=== PATIENT | female | born 1980 | race American Indian/Alaskan Native ===

== ENCOUNTER 2018-10-16 18:57 | Inpatient (IN) | payer MEDICAID ==
[2018-10-16 18:58] VITALS: BMI 33.5
--- NOTE | 2018-10-16 19:25 | C.PDOC ---
History Of Present Illness Patient is a 37yo F with PMH IDDM, HTN, hypothyroidism here today for chest pain starting this morning. She says this is what her last episode of DKA felt like. She has been taking her insulin, however her eating today has been erratic. The generalized anterior chest pain does not radiate and started this AM upon waking and worsened until she became short of breath which encouraged her to come to the hospital. She states that she's been urinating almost 7 times a day for the last two days. She has felt more numbness and tingling in her hands and feet than her usual neuropathy. Admits fever, chills, dehydration, nausea. Denies abdominal pain, vomiting, constipation, trauma. <Caty Shah - Last Filed: 10/16/18 21:53> History Per: Patient Onset/Duration Of Symptoms: Hrs Current Symptoms Are (Timing): Worse Quality: Aching, Tightness Associated Symptoms: Nausea. denies: Diaphoresis, Syncope <Caty Shah - Last Filed: 10/16/18 21:53> <Emre Jolly - Last Filed: 10/16/18 22:05> Time Seen by Provider: 10/16/18 19:24 Chief Complaint (Nursing): Chest Pain Past Medical History Reviewed: Historical Data, Nursing Documentation, Vital Signs Vital Signs: Last Vital Signs Temp 98.4 F 10/16/18 19:10 Pulse 108 H 10/16/18 19:20 Resp 20 10/16/18 19:10 BP 144/54 L 10/16/18 19:20 Pulse Ox 99 10/16/18 19:26 <Caty Shah - Last Filed: 10/16/18 21:53> Reviewed: Historical Data, Nursing Documentation, Vital Signs Vital Signs: Last Vital Signs Temp 98.4 F 10/16/18 19:10 Pulse 102 H 10/16/18 19:10 Resp 20 10/16/18 19:10 BP 134/80 10/16/18 19:10 Pulse Ox - Medical History PMH: Asthma, Diabetes, HTN, Hypothyroidism Denies: Depression Family History: States: No Known Family Hx - Social History Hx Alcohol Use: Yes Hx Substance Use: No - Immunization History Hx Tetanus Toxoid Vaccination: Yes Hx Influenza Vaccination: Yes Hx Pneumococcal Vaccination: Yes <Emre Jolly - Last Filed: 10/16/18 22:05> Review Of Systems Constitutional: Positive for: Fever, Chills, Weakness. Negative for: Sweats Cardiovascular: Positive for: Chest Pain. Negative for: Palpitations, Edema Respiratory: Positive for: Shortness of Breath. Negative for: Cough, Hemoptysis, Wheezing Gastrointestinal: Positive for: Nausea. Negative for: Vomiting, Abdominal Pain, Diarrhea, Constipation, Hematochezia Genitourinary: Positive for: Frequency. Negative for: Dysuria, Incontinence Skin: Negative for: Rash, Jaundice Neurological: Positive for: Weakness, Numbness. Negative for: Confusion, Seizures Psych: Negative for: Anxiety, Depression <Caty Shah - Last Filed: 10/16/18 21:53> Physical Exam - Physical Exam Appears: Toxic, No Acute Distress Skin: Warm, Dry Head: Atraumatic, Normacephalic Eye(s): bilateral: PERRL, EOMI, Conjunctiva Pale Oral Mucosa: Dry Neck: Normal ROM, Trachea Midline Chest: Symmetrical, No Deformity, No Tenderness, No Ecchymosis Cardiovascular: Rhythm Regular (tachycardia), No Murmur Respiratory: Normal Breath Sounds, No Accessory Muscle Use, No Rales, No Rhonchi, No Stridor Gastrointestinal/Abdominal: Bowel Sounds, Soft, No Tenderness, No Distention, No Guarding Extremity: Bilateral: No Pedal Edema Pulses: Left Radial: Normal, Right Radial: Normal, Left Dorsalis Pedis: Normal, Right Dorsalis Pedis: Normal DTR: Knee (R): 2+, Knee (L): 2+ Neurological/Psych: Oriented x3, Normal Speech, Normal Cognition, Normal Motor, No Normal Sensation (decreased sensation in hands and legs distal to knee bilaterally) <Caty Shah - Last Filed: 10/16/18 21:53> - Physical Exam Appears: Toxic, In Acute Distress Skin: Warm, Dry, Diaphoretic Head: Other (r hydrocephalus shunt) Eye(s): bilateral: Normal Inspection Oral Mucosa: Dry Neck: Supple Back: No CVA Tenderness Extremity: No Tenderness Extremity: Bilateral: Atraumatic, No Pedal Edema, Normal Color And Temperature Gait: Unable To Assess <Emre Jolly - Last Filed: 10/16/18 22:05> ED Course And Treatment - Laboratory Results Result Diagrams: 10/16/18 19:37 10/16/18 20:40 <Caty Shah - Last Filed: 10/16/18 21:53> - Laboratory Results Result Diagrams: 10/16/18 19:37 10/16/18 20:40 ECG: Interpreted By Me, Viewed By Me ECG Rhythm: Sinus Rhythm (104), Nonspecific Changes O2 Sat by Pulse Oximetry: 99 Pulse Ox Interpretation: Normal Progress Note: spoke with dr pritchard - icu- will come and see the pt int the ed. I've attempted a left ej, ut the vein collapsed <Emre Jolly - Last Filed: 10/16/18 22:05> Critical Care Time - Critical Care Note Total Time (in mins): 30 Documented critical care: time excludes all time spent performing seperately billable procedures. <Emre Jolly - Last Filed: 10/16/18 22:05> Medical Decision Making Medical Decision Making: - EKG - VBG shock - labs - Hgb A1c - b-hydroxy - lipase - Mg, P - troponin - ASA 325mg PO - NS 3L bolus - UA, upreg - Zofran PO <Caty Shah - Last Filed: 10/16/18 21:53> Disposition <Caty Shah - Last Filed: 10/16/18 21:53> Discussed With : Carlos Marroquin Comment: accepted the pt on her service and took over the care at 10:02. PM Doctor Will See Patient In The: ED Counseled Patient/Family Regarding: Studies Performed, Diagnosis - Disposition Disposition Time: 19:25 - POA Present On Arrival: Poor Glycemic Control <Emre Jolly - Last Filed: 10/16/18 22:05> - Disposition Disposition: HOSPITALIZED Condition: CRITICAL Forms: [employer] ([place]) - Clinical Impression Clinical Impression: DKA (diabetic ketoacidosis) Decision To Admit <Caty Shah - Last Filed: 10/16/18 21:53> - Pt Status Changed To: Hospital Disposition Of: Inpatient - Admit Certification Admit to Inpatient:: After my assessment, the patient will require hospita lization for at least two midnights. This is because of the severity of symptoms shown, intensity of services needed, and/or the medical risk in this patient being treated as an outpatient. - InPatient: Physician Admission Certification: I certify that this patient requires 2 or more midnights of care for the following reason:: After my assessment, the patie nt will require hospitalization for at least two midnights. This is because of the severity of symptoms shown, intensity of services needed, and/or the medical risk in this patient being treated as an outpatient. - . Bed Request Type: ICU <Emre Jolly - Last Filed: 10/16/18 22:05> - . Patient Diagnosis: DKA (diabetic ketoacidosis)
[2018-10-16] MEDS ORDERED: Aspirin 325 mg EC Tablets PO STA (19:27)
[2018-10-16] MEDS ORDERED: Sodium Chloride 0.9% 1,000 ML IV ONE ×2 (19:38→22:00)
[2018-10-16 19:43] LABS: BASO % 0.1 % (0.0-2.0); HEMOGLOBIN 14.5 g/dL (11.0-16.0); LYMPH # 0.6 K/uL (1.0-4.3); LYMPH % 3.7 % (20.0-40.0); MEAN CELL VOLUME 91.6 fL (81.0-99.0); MEAN CORPUSCULAR HEMOGLOBIN 29.3 pg (27.0-31.0); MEAN PLATELET VOLUME 8.3 fL (7.2-11.7); MONO # 0.6 K/uL (0.0-0.8); MONO % 4.1 % (0.0-10.0); NEUT # 14.2 K/uL (1.8-7.0); NEUT % 92.1 % (50.0-75.0); PLATELET COUNT 324 K/uL (130-400); RBC 4.96 Mil/uL (3.80-5.20); RED CELL DISTRIBUTION WIDTH 15.4 % (11.5-14.5); WHITE BLOOD COUNT 15.4 K/uL (4.8-10.8)
[2018-10-16 19:56] LABS: INR 1.1; PROTHROMBIN TIME 11.5 SECONDS (9.7-12.2)
[2018-10-16 20:17] LABS: HCG,QUALITATIVE URINE NEGATIVE (NEGATIVE)
[2018-10-16 20:20] LABS: SQUAMOUS EPITHIAL 1 /hpf (0-5); URINE BACTERIA RARE (<OCC); URINE BILIRUBIN NEGATIVE (NEGATIVE); URINE BLOOD 1+ (NEGATIVE); URINE CLARITY Clear (Clear); URINE COLOR Straw (YELLOW); URINE GLUCOSE (UA) 3+ mg/dL (Normal); URINE LEUKOCYTE ESTERASE NEG Leu/uL (Negative); URINE PROTEIN NEGATIVE (NEGATIVE); URINE UROBILINOGEN NORMAL mg/dL (0.2-1.0)
[2018-10-16 20:43] LABS: VENOUS BLOOD GAS PCO2 33 mmHg (40-60); VENOUS BLOOD GAS PO2 30 mm/Hg (30-55); VENOUS BLOOD PH < 6.80 (7.32-7.43)
[2018-10-16] MEDS ORDERED: Sodium Chloride 0.9% 2,000 ML IV ONE (20:45)
[2018-10-16] MEDS ORDERED: Sodium Chloride 0.9% 2,000 ML ONE (20:56)
[2018-10-16 21:17] LABS: ALB/GLOB RATIO 1.4 (1.0-2.1); ALBUMIN 5.5 g/dL (3.5-5.0); ALT/SGPT 13 U/L (9-52); AST/SGOT 53 U/L (14-36); BLOOD UREA NITROGEN 20 mg/dL (7-17); CALCIUM 10.1 mg/dl (8.6-10.4); GFR NON-AFRICAN AMERICAN > 60; LIPASE 28 U/L (23-300)
[2018-10-16] MEDS ORDERED: Insulin Human Regular 100 UNIT in Sodium Chloride 0.9% 99 ML IV SCH ×3 (21:30→22:56)
[2018-10-16] MEDS ORDERED: Sodium Bicarbonate (8.4%) 50 Meq Syringe IVP ONE (21:45)
[2018-10-16] MEDS ORDERED: (Novolin R) Insulin Human Regular 100 units/ml vial IVP ONE (21:48)
[2018-10-16] MEDS ORDERED: Sodium Bicarbonate (8.4%) 50 mEq Vial ONE (21:59)
[2018-10-16] MEDS ORDERED: (Novolin R) Insulin Human Regular 100 units/ml vial ONE (22:05)
[2018-10-16 22:13] LABS: ABG ALLEN TEST POS; ARTERIAL BLOOD GAS HCO3 2.9 mmol/L (21-28); ARTERIAL BLOOD GAS O2 SAT 99.3 % (95-98); ARTERIAL BLOOD GAS PCO2 10 mm/Hg (35-45); ARTERIAL BLOOD GAS PH 6.95 (7.35-7.45); ARTERIAL BLOOD GAS PO2 138 mm/Hg (80-100); ARTERIAL BLOOD GAS TCO2 2.5 mmol/L (22-28)
[2018-10-16 22:24] LABS: BANDS 5 % (0-2); LYMPHOCYTE 5 % (20-40); MONOCYTE 3 % (0-10); NEUTROPHIL 87 % (50-75); TOTAL CELLS COUNTED 100
[2018-10-16 22:25] LABS: PLATELET ESTIMATE NORMAL (NORMAL)
--- NOTE | 2018-10-16 23:19 | CP.PCM.CON ---
History of Present Illness - History of Present Illness History of Present Illness: Chief commend: Not feeling well HPI: 37-year-old female with a known history of diabetes and taking medications insulin short-acting 3 times a day was doing well until yesterday. Last night she started having some heaves not feeling well. This morning she was okay but later she started having increasing heaves, associate with the nausea symptoms. She was not feeling well, she started having increasing body pain, and also associated with the nausea sensation. She denies any fever, denies any chills, denies any vomiting. But increasing urinary output noted. Increasing testing as noted. She was with the friends at that time, as the condition started getting worse, she called the ambulance and brought to the emergency room. Currently patient is having increasing body pain, joint pain. Not feeling well. Generalized weakness noted. But patient is answering simple questions Past medical history Hypertension, diabetes, history of hydrocephalus History of PHARMACY TECHNICIAN shunt Allergies no known drug allergy Patient denies any smoking. Denies any alcohol. Denies any drug abuse Family history significant for high blood pressure and diabetes Patient is lives by herself had a family lives distant On examination: Patient is having severe distress at this time. Acidotic breathing noted. Dry mucosa noted. Increasing urination noted today Alert and awake responding. Chest bilateral good air entry Heart sounds are regular Abdomen soft. Nontender. No edema I reviewed the labs Severe acidosis Severe anion gap is metabolic acidosis noted. DKA likely. Assessment and recommendation: 37-year-old female with history of diabetes and a history of hydrocephalus came to the emergency room with severe DKA. Severe metabolic acidosis with anion gap. Patient will need increasing IV fluids. IV fluid resuscitation. Insulin drip. Monitor the electrolytes very closely. Hyperkalemia noted also been Likely secondary to DKA as the acidosis gets corrected potassium level will also improve the GI prophylaxis. DVT prophylaxis. It is unclear whether there is any secondary component such as infectious process at this time. Patient does not have any fever. Urine analysis is clear. Lipase level is normal. Still will closely monitor. If there is evidence of infection we will start the patient on antibiotic. Past Patient History - Infectious Disease Hx of Infectious Diseases: None - Tetanus Immunizations Tetanus Immunization: Unknown - Past Social History Smoking Status: Never Smoked - CARDIAC Hx Hypertension: Yes - PULMONARY Hx Asthma: Yes - NEUROLOGICAL Other/Comment: neuropathy - HEENT Hx Cataracts: Yes Other/Comment: retinopathy - ENDOCRINE/METABOLIC Hx Hypothyroidism: Yes - PSYCHIATRIC Hx Depression: No Hx Substance Use: No - SURGICAL HISTORY Hx Cataract Extraction: Yes - ANESTHESIA Hx Anesthesia: Yes Meds Allergies/Adverse Reactions: Allergies Allergy/AdvReac Type Severity Reaction Status Date / Time No Known Allergies Allergy Verified 10/16/18 19:15 - Medications Medications: Current Medications Albuterol/Ipratropium (Duoneb 3 Mg/0.5 Mg (3 Ml) Ud) 3 ml INH RQ6 [facility] Heparin Sodium (Porcine) (Heparin) 5,000 units SC Q8 [facility] Sodium Chloride (Sodium Chloride 0.9%) 1,000 mls @ 500 mls/hr IV .Q2H [facility] Insulin Human Regular 100 unit (/ Sodium Chloride) 100 mls @ 5 mls/hr IV .Q20H [facility]; Protocol Pantoprazole Sodium (Protonix Inj) 40 mg IVP Q12H [facility] Results - Vital Signs Recent Vital Signs: Last Vital Signs Temp 98.4 F 10/16/18 19:10 Pulse 129 H 10/16/18 22:32 Resp 28 H 10/16/18 22:32 BP 145/55 L 10/16/18 22:32 Pulse Ox 100 10/16/18 22:32 - Labs Result Diagrams: 10/16/18 19:37 10/16/18 20:40 Labs: Laboratory Results - last 24 hr 10/16/18 10/16/18 10/16/18 19:37 19:37 19:37 WBC 15.4 H RBC 4.96 Hgb 14.5 Hct 45.4 MCV 91.6 MCH 29.3 MCHC 32.0 L RDW 15.4 H Plt Count 324 MPV 8.3 Neut % (Auto) 92.1 H Lymph % (Auto) 3.7 L Larue % (Auto) 4.1 Eos % (Auto) 0.0 Baso % (Auto) 0.1 Neut # (Auto) 14.2 H Lymph # (Auto) 0.6 L [place] # (Auto) 0.6 Eos # (Auto) 0.0 Baso # (Auto) 0.0 Neutrophils % (Manual) 87 H Band Neutrophils % 5 H Lymphocytes % (Manual) 5 L Monocytes % (Manual) 3 Platelet Estimate Normal PT 11.5 INR 1.1 APTT 31.0 Puncture Site pCO2 pO2 HCO3 ABG pH ABG Total CO2 ABG O2 Saturation ABG Base Excess Mateusz Test ABG Potassium VBG pH VBG pCO2 VBG O2 Sat (Calc) VBG Potassium A-a O2 Difference Respiratory Index Sodium Chloride Glucose Lactate FiO2 Crit Value Called To Crit Value Called By Crit Value Read Back Blood Gas Notified Time Potassium Carbon Dioxide Anion Gap BUN Creatinine Est GFR ( Amer) Est GFR (Non-Af Amer) POC Glucose (mg/dL) Random Glucose Hemoglobin A1c 9.3 H Calcium Phosphorus Magnesium Total Bilirubin AST ALT Alkaline Phosphatase Troponin I Total Protein Albumin Globulin Albumin/Globulin Ratio Lipase Arterial Blood Potassium Venous Blood Potassium Urine Color Urine Clarity Urine pH Ur Specific [place] Urine Protein Urine Glucose (UA) Urine Ketones Urine Blood Urine Nitrate Urine Bilirubin Urine Urobilinogen Ur Leukocyte Esterase Urine RBC (Auto) Ur Squamous Epith Cells Urine Bacteria Urine HCG, Qual B-Hydroxybutyrate 10/16/18 10/16/18 10/16/18 19:39 19:46 20:40 WBC RBC Hgb Hct MCV MCH MCHC RDW Plt Count MPV Neut % (Auto) Lymph % (Auto) [place] % (Auto) Eos % (Auto) Baso % (Auto) Neut # (Auto) Lymph # (Auto) [place] # (Auto) Eos # (Auto) Baso # (Auto) Neutrophils % (Manual) Band Neutrophils % Lymphocytes % (Manual) Monocytes % (Manual) Platelet Estimate PT INR APTT Puncture Site pCO2 pO2 30 HCO3 ABG pH ABG Total CO2 ABG O2 Saturation ABG Base Excess Mateusz Test ABG Potassium VBG pH < 6.80 L* VBG pCO2 33 L VBG O2 Sat (Calc) 46.3 VBG Potassium 7.8 H* A-a O2 Difference Respiratory Index Sodium 132.0 Chloride 100.0 Glucose 565 H* Lactate 4.7 H* FiO2 21.0 Crit Value Called To Dr beckwith Crit Value Called By [facility] Crit Value Read Back Y Blood Gas Notified Time 2042 Potassium Carbon Dioxide Anion Gap BUN Creatinine Est GFR ( Amer) Est GFR (Non-Af Amer) POC Glucose (mg/dL) > 500 H* Random Glucose Hemoglobin A1c Calcium Phosphorus Magnesium Total Bilirubin AST ALT Alkaline Phosphatase Troponin I Total Protein Albumin Globulin Albumin/Globulin Ratio Lipase Arterial Blood Potassium Venous Blood Potassium 7.8 H* Urine Color Straw Urine Clarity Clear Urine pH 5.0 Ur Specific [place] 1.012 Urine Protein Negative Urine Glucose (UA) 3+ H Urine Ketones 2+ H Urine Blood 1+ H Urine Nitrate Negative Urine Bilirubin Negative Urine Urobilinogen Normal Ur Leukocyte Esterase Neg Urine RBC (Auto) < 1 Ur Squamous Epith Cells 1 Urine Bacteria Rare Urine HCG, Qual Negative B-Hydroxybutyrate 10/16/18 10/16/18 10/16/18 20:40 22:05 22:10 WBC RBC Hgb Hct MCV MCH MCHC RDW Plt Count MPV Neut % (Auto) Lymph % (Auto) [place] % (Auto) Eos % (Auto) Baso % (Auto) Neut # (Auto) Lymph # (Auto) [place] # (Auto) Eos # (Auto) Baso # (Auto) Neutrophils % (Manual) Band Neutrophils % Lymphocytes % (Manual) Monocytes % (Manual) Platelet Estimate PT INR APTT Puncture Site Rba pCO2 10 L* pO2 138 H HCO3 2.9 L* ABG pH 6.95 L* ABG Total CO2 2.5 L ABG O2 Saturation 99.3 H ABG Base Excess -28.2 L Mateusz Test Pos ABG Potassium 6.8 H* VBG pH VBG pCO2 VBG O2 Sat (Calc) VBG Potassium A-a O2 Difference -1.0 Respiratory Index 0 Sodium 133 138.0 Chloride 101 110.0 H Glucose 544 H* Lactate 3.5 H FiO2 21.0 Crit Value Called To Dr pritchard Crit Value Called By [facility] Crit Value Read Back Y Blood Gas Notified Time 2213 Potassium 7.6 H* Carbon Dioxide < 5 L* Anion Gap 35 H BUN 20 H Creatinine 1.0 Est GFR ( Amer) > 60 Est GFR (Non-Af Amer) > 60 POC Glucose (mg/dL) > 500 H* Random Glucose 585 H* Hemoglobin A1c Calcium 10.1 Phosphorus 8.2 H Magnesium 2.5 H Total Bilirubin 0.8 AST 53 H ALT 13 Alkaline Phosphatase 176 H Troponin I < 0.0120 Total Protein 9.4 H Albumin 5.5 H Globulin 3.9 Albumin/Globulin Ratio 1.4 Lipase 28 Arterial Blood Potassium 6.8 H* Venous Blood Potassium Urine Color Urine Clarity Urine pH Ur Specific [place] Urine Protein Urine Glucose (UA) Urine Ketones Urine Blood Urine Nitrate Urine Bilirubin Urine Urobilinogen Ur Leukocyte Esterase Urine RBC (Auto) Ur Squamous Epith Cells Urine Bacteria Urine HCG, Qual B-Hydroxybutyrate 9.65 H 10/16/18 22:58 WBC RBC Hgb Hct MCV MCH MCHC RDW Plt Count MPV Neut % (Auto) Lymph % (Auto) [place] % (Auto) Eos % (Auto) Baso % (Auto) Neut # (Auto) Lymph # (Auto) [place] # (Auto) Eos # (Auto) Baso # (Auto) Neutrophils % (Manual) Band Neutrophils % Lymphocytes % (Manual) Monocytes % (Manual) Platelet Estimate PT INR APTT Puncture Site pCO2 pO2 HCO3 ABG pH ABG Total CO2 ABG O2 Saturation ABG Base Excess Mateusz Test ABG Potassium VBG pH VBG pCO2 VBG O2 Sat (Calc) VBG Potassium A-a O2 Difference Respiratory Index Sodium Chloride Glucose Lactate FiO2 Crit Value Called To Crit Value Called By Crit Value Read Back Blood Gas Notified Time Potassium Carbon Dioxide Anion Gap BUN Creatinine Est GFR ( Amer) Est GFR (Non-Af Amer) POC Glucose (mg/dL) 456 H* Random Glucose Hemoglobin A1c Calcium Phosphorus Magnesium Total Bilirubin AST ALT Alkaline Phosphatase Troponin I Total Protein Albumin Globulin Albumin/Globulin Ratio Lipase Arterial Blood Potassium Venous Blood Potassium Urine Color Urine Clarity Urine pH Ur Specific [place] Urine Protein Urine Glucose (UA) Urine Ketones Urine Blood Urine Nitrate Urine Bilirubin Urine Urobilinogen Ur Leukocyte Esterase Urine RBC (Auto) Ur Squamous Epith Cells Urine Bacteria Urine HCG, Qual B-Hydroxybutyrate
[2018-10-16 23:56] LABS: BASO # 0.2 K/uL (0.0-0.2); BASO % 0.9 % (0.0-2.0); EOS % 0.1 % (0.0-4.0); HEMOGLOBIN 12.7 g/dL (11.0-16.0); LYMPH # 0.7 K/uL (1.0-4.3); LYMPH % 3.6 % (20.0-40.0); MEAN CELL VOLUME 90.9 fL (81.0-99.0); MEAN CORPUSCULAR HEMOGLOBIN 29.5 pg (27.0-31.0); MEAN CORPUSCULAR HGB CONC 32.4 g/dL (33.0-37.0); MONO # 1.5 K/uL (0.0-0.8); MONO % 7.8 % (0.0-10.0); NEUT # 17.1 K/uL (1.8-7.0); NEUT % 87.6 % (50.0-75.0); PLATELET COUNT 309 K/uL (130-400); RBC 4.32 Mil/uL (3.80-5.20); RED CELL DISTRIBUTION WIDTH 14.7 % (11.5-14.5); WHITE BLOOD COUNT 19.5 K/uL (4.8-10.8)
[2018-10-17] LABS: VENOUS BLOOD GAS BASE EXCESS -30.2 mmol/L (0.0-2.0); VENOUS BLOOD GAS PCO2 18 mmHg (40-60); VENOUS BLOOD GAS PO2 55 mm/Hg (30-55); VENOUS BLOOD PH 6.83 (7.32-7.43)
[2018-10-17 00:20] LABS: ALB/GLOB RATIO 1.6 (1.0-2.1); ALBUMIN 4.4 g/dL (3.5-5.0); ALT/SGPT 21 U/L (9-52); AST/SGOT 39 U/L (14-36); BLOOD UREA NITROGEN 20 mg/dL (7-17); CALCIUM 8.6 mg/dl (8.6-10.4); GFR NON-AFRICAN AMERICAN > 60
[2018-10-17] MEDS: Sodium Chloride 0.9% 1,000 ML IV SCH ×5 (00:21→04:43)
[2018-10-17] MEDS ORDERED: Sodium Bicarbonate (8.4%) 50 Meq Syringe IVP ONE ×3 (00:30→08:45)
[2018-10-17 02:00] LABS: ANISOCYTOSIS SLIGHT; LYMPHOCYTE 3 % (20-40); MONOCYTE 9 % (0-10); NEUTROPHIL 88 % (50-75); PLATELET ESTIMATE NORMAL (NORMAL); TOTAL CELLS COUNTED 100
[2018-10-17] MEDS: Sodium Chloride 0.45% 1,000 ML IV SCH ×2 (02:30→04:43)
[2018-10-17 05:06] LABS: VENOUS BLOOD GAS PCO2 18 mmHg (40-60); VENOUS BLOOD GAS PO2 50 mm/Hg (30-55); VENOUS BLOOD PH 7.04 (7.32-7.43)
--- NOTE | 2018-10-17 05:39 | CON ---
DATE: 10/16/2018 ENDOCRINOLOGY CONSULTATION LOCATION: ICU room 7. HISTORY OF PRESENT ILLNESS: This is a 37-year-old female with known history of type 1 insulin-dependent diabetes and fairly compliant with her insulin regimen and presented here with sudden onset of generalized body weakness with increasing bouts of dizziness and lightheadedness and aggressive shortness of breath, came to the emergency room for further evaluation and subsequent admission. PAST MEDICAL HISTORY: As mentioned above, history of type 1 insulin-dependent diabetes, on a combination of Lantus taken as 30 units once daily with NovoLog given at the valuable dose three times a day with meals; history of hypothyroidism, on levothyroxine at 25 mcg daily; history of hypertension and dyslipidemia; history of diabetic polyneuropathy with painful nocturnal paraesthesias. History of hydrocephalus with a prior SENIOR SOLUTIONS ENGINEER shunt insertion some years ago. FAMILY HISTORY: Positive for diabetes and hypertension. SOCIAL HISTORY: The patient has a supportive family. No known substance use. REVIEW OF SYSTEMS: As mentioned above, admits to generalized body weakness with progressive bouts of dizziness and lightheadedness and supervening bifrontal headaches with visual blurring. No chest pain or palpitations but admits to progressive shortness of breath especially on exertion. Her oral intake has been variable with nausea, dyspepsia, and episodic vomiting episodes. Also admits to marked polyuria, nocturia, and polydipsia. PHYSICAL EXAMINATION: GENERAL: This is an overweight female, in no apparent distress. VITAL SIGNS: With a blood pressure of 140/80, pulse of 100 beats per minute and regular, temperature 98, respirations 20. Height is 5 feet 4 inches. Weight is 212 pounds. HEENT: Head: Normocephalic. Eyes: Anicteric with pink conjunctivae. Funduscopy not possible at this time. Ears, nose and throat otherwise normal. NECK: Supple. Thyroid gland is in normal size. No carotid bruits or cervical adenopathy. CARDIOPULMONARY: Some adynamic precordium. S1 and S2 are rapid and regular. LUNGS: Clear to auscultation. ABDOMEN: Flat, soft with positive bowel sounds. EXTREMITIES: No peripheral edema. Pulses are +2 bilaterally. LABORATORY DATA: Initial chemistries showed a BUN of 20, sodium 133, potassium 7.6, chloride 101, CO2 (carbon dioxide) is less than 5, glucose is 585 with a random fingerstick of over 500 mg/dL, creatinine is 1, magnesium is 2.5, phosphorus 8.2. Hemoglobin A1c is 9.3%. ASSESSMENT: This is a 37-year-old female with uncontrolled and decompensated type 1 insulin-dependent diabetes with marked hyperglycemic accelerations and supervening severe diabetic ketoacidosis and dehydration with spurious hyperkalemia and prerenal azotemia. PLAN OF MANAGEMENT: We will concur with a vigorous IV hydration as initiated at this time, and we should continue for the next 48 hours to optimize her volume deficits. We will obtain serial chemistries and supplement accordingly as needed. We will also concur with the initiation of an intensive insulin therapy with an insulin drip infusion as ordered. As her anion gap closes with near resolution of her carbon dioxide to at least above 18 to 20, then we can safely switch her over to a more phsyiologic basal and bolus insulin drug combination as indicated. We will obtain a comprehensive thyroid hormonal profile and adjust her levothyroxine dose accordingly. We will follow. Sherrell Amezquita MD
[2018-10-17 05:47] LABS: BASO % 0.2 % (0.0-2.0); LYMPH # 1.3 K/uL (1.0-4.3); LYMPH % 7.9 % (20.0-40.0); MEAN CELL VOLUME 88.4 fL (81.0-99.0); MEAN CORPUSCULAR HEMOGLOBIN 28.8 pg (27.0-31.0); MEAN CORPUSCULAR HGB CONC 32.6 g/dL (33.0-37.0); MONO # 1.3 K/uL (0.0-0.8); MONO % 7.7 % (0.0-10.0); NEUT # 13.8 K/uL (1.8-7.0); NEUT % 84.2 % (50.0-75.0); PLATELET COUNT 256 K/uL (130-400); RBC 4.15 Mil/uL (3.80-5.20); RED CELL DISTRIBUTION WIDTH 15.1 % (11.5-14.5); WHITE BLOOD COUNT 16.3 K/uL (4.8-10.8)
[2018-10-17 06:18] LABS: ALB/GLOB RATIO 1.5 (1.0-2.1); ALBUMIN 3.9 g/dL (3.5-5.0); ALT/SGPT 23 U/L (9-52); AST/SGOT 30 U/L (14-36); BLOOD UREA NITROGEN 15 mg/dL (7-17); CALCIUM 8.5 mg/dl (8.6-10.4); GFR NON-AFRICAN AMERICAN > 60
[2018-10-17 06:41] LABS: T3 0.816 nmol/L (1.49-2.60)
[2018-10-17] MEDS ORDERED: Dextrose 5%/0.45% NS 1,000 ML IV SCH ×2 (07:30→08:19)
[2018-10-17] MEDS: Albuterol-Ipratrop 3 mg / 0.5 (3 ml) UD INH SCH ×3 (07:31→19:41)
[2018-10-17] MEDS ORDERED: Dextrose 50% SYRINGE Inj (50 ml) IV PRN (08:23)
[2018-10-17] MEDS: Insulin Human Regular 100 UNIT in Sodium Chloride 0.9% 99 ML IV SCH ×2 (08:30→20:00)
[2018-10-17] MEDS: Dextrose 5%/0.45% NS 1,000 ML IV SCH ×4 (08:38→20:35)
[2018-10-17] MEDS ORDERED: Sodium Bicarbonate (8.4%) 50 mEq Vial IVP ONE (09:00)
--- NOTE | 2018-10-17 09:56 | CP.PCM.PN ---
Subjective - Date & Time of Evaluation Date of Evaluation: 10/17/18 Time of Evaluation: 09:52 - Subjective Subjective: Patient awake, alert, dx with insulin dependenet diabetes takes lantus 25 units, aspart 6 units in Am, 12 at lunch and 12 night premeals, (+)sexually active Objective - Vital Signs/Intake and Output Vital Signs (last 24 hours): Temp Pulse Resp BP Pulse Ox 98.4 F 118 H 21 118/62 100 10/17/18 08:00 10/17/18 08:00 10/17/18 08:00 10/17/18 08:00 10/17/18 08:00 Intake and Output: 10/17/18 10/17/18 06:59 18:59 Intake Total 7060 265 Output Total 5000 1000 Balance 2060 -735 - Medications Medications: Current Medications Albuterol/Ipratropium (Duoneb 3 Mg/0.5 Mg (3 Ml) Ud) 3 ml INH RQ6 [facility] Last Admin: 10/17/18 07:31 Dose: 3 ml Dextrose (Dextrose 50% Inj) 25 ml IV Q1H PRN PRN Reason: Other Heparin Sodium (Porcine) (Heparin) 5,000 units SC Q8 [facility] Last Admin: 10/17/18 06:08 Dose: Not Given Dextrose/Sodium Chloride (Dextrose 5%/0.45% Ns 1000 Ml) 1,000 mls @ 250 mls/hr IV .Q4H [facility] Last Admin: 10/17/18 08:38 Dose: 250 mls/hr Insulin Human Regular 100 unit (/ Sodium Chloride) 100 mls @ 9.81 mls/hr IV .[id number] [facility]; Protocol Last Titration: 10/17/18 09:30 Dose: 0.02 unit/kg/hr, 2.9 mls/hr Pantoprazole Sodium (Protonix Inj) 40 mg IVP Q12H [facility] Last Admin: 10/17/18 00:50 Dose: 40 mg - Labs Labs: 10/17/18 05:42 10/17/18 05:42 PT 11.5 SECONDS (9.7-12.2) 10/16/18 19:37 INR 1.1 10/16/18 19:37 APTT 31.0 SECONDS (21-34) 10/16/18 19:37 - Head Exam Head Exam: ATRAUMATIC, NORMAL INSPECTION, NORMOCEPHALIC - Eye Exam Eye Exam: EOMI - ENT Exam ENT Exam: Normal Exam - Respiratory Exam Respiratory Exam: Clear to Ausculation Bilateral, NORMAL BREATHING PATTERN - Cardiovascular Exam Cardiovascular Exam: Tachycardia, REGULAR RHYTHM, +S1, +S2 - GI/Abdominal Exam GI & Abdominal Exam: Soft, Normal Bowel Sounds - Extremities Exam Extremities Exam: Normal Inspection - Back Exam Back Exam: NORMAL INSPECTION - Neurological Exam Neurological Exam: Alert, Awake - Skin Skin Exam: Normal Color, Warm Assessment and Plan - Assessment and Plan (Free Text) Assessment: DKA: continue IV insulin, IV D5/12NS -BGm q1hrs -serial cmp -check HIV and RPR and Urine G/C -check utox -PAtient is in DKA; however there seems to be no exacerbating factors -Patient claims to be taking her medications as presctibed -check HBA1c - at risk of CAD:start asa + statin -continue dvt/pud ppx toelrating oral diet
--- NOTE | 2018-10-17 10:00 | CP.PCM.PN ---
Subjective - Date & Time of Evaluation Date of Evaluation: 10/17/18 Time of Evaluation: 09:59 - Subjective Subjective: H&P dictated #[id number] Objective - Vital Signs/Intake and Output Vital Signs (last 24 hours): Temp Pulse Resp BP Pulse Ox 98.4 F 118 H 21 118/62 100 10/17/18 08:00 10/17/18 08:00 10/17/18 08:00 10/17/18 08:00 10/17/18 08:00 Intake and Output: 10/17/18 10/17/18 06:59 18:59 Intake Total 7060 1157.7 Output Total 5000 2000 Balance 2060 -842.3 - Medications Medications: Current Medications Albuterol/Ipratropium (Duoneb 3 Mg/0.5 Mg (3 Ml) Ud) 3 ml INH RQ6 [facility] Last Admin: 10/17/18 07:31 Dose: 3 ml Aspirin (Aspirin Chewable) 81 mg PO DAILY [facility] Dextrose (Dextrose 50% Inj) 25 ml IV Q1H PRN PRN Reason: Other Heparin Sodium (Porcine) (Heparin) 5,000 units SC Q8 [facility] Last Admin: 10/17/18 06:08 Dose: Not Given Dextrose/Sodium Chloride (Dextrose 5%/0.45% Ns 1000 Ml) 1,000 mls @ 250 mls/hr IV .Q4H [facility] Last Admin: 10/17/18 08:38 Dose: 250 mls/hr Insulin Human Regular 100 unit (/ Sodium Chloride) 100 mls @ 9.81 mls/hr IV .[id number] [facility]; Protocol Last Titration: 10/17/18 09:30 Dose: 0.02 unit/kg/hr, 2.9 mls/hr Pantoprazole Sodium (Protonix Inj) 40 mg IVP Q12H [facility] Last Admin: 10/17/18 00:50 Dose: 40 mg Rosuvastatin Calcium (Crestor) 10 mg PO HS [facility] - Labs Labs: 10/17/18 05:42 10/17/18 05:42 PT 11.5 SECONDS (9.7-12.2) 10/16/18 19:37 INR 1.1 10/16/18 19:37 APTT 31.0 SECONDS (21-34) 10/16/18 19:37
--- NOTE | 2018-10-17 10:12 | PN ---
DATE: 10/17/2018 ENDOCRINOLOGY FOLLOWUP NOTE LOCATION: ICU room 7. SUBJECTIVE: This is a 37-year-old female with uncontrolled type 1 insulin-dependent diabetes presenting here with diabetic ketoacidosis and dehydration and is now being followed closely for metabolic management. Her glycemic levels overnight have improved and have ranged from 251 to 272 and 325 mg/dL. Her latest chemistry showed a BUN of 20, sodium 146, potassium 5.9, chloride 117, CO2 is still less than 5, and creatinine is 0.9 with a glucose of 333 mg/dL. ASSESSMENT: This is a 37-year-old female with uncontrolled type 1 insulin-dependent diabetes with dehydration and severe diabetic ketoacidosis and previous hyperkalemia as noted. PLAN OF MANAGEMENT: We will continue the vigorous IV hydration and intensive insulin therapy as given with an insulin drip infusion that is ongoing at this time. We will obtain serial chemistries and supplement accordingly as needed. We will follow with you. Sherrell Amezquita MD
[2018-10-17 10:29] LABS: LYMPHOCYTE 8 % (20-40); MONOCYTE 5 % (0-10); NEUTROPHIL 87 % (50-75); TOTAL CELLS COUNTED 100
[2018-10-17 10:30] LABS: ANISOCYTOSIS SLIGHT; PLATELET ESTIMATE NORMAL (NORMAL)
[2018-10-17 10:31] LABS: TOXIC GRANULATION PRESENT
[2018-10-17 13:47] LABS: ALB/GLOB RATIO 1.4 (1.0-2.1); ALBUMIN 3.5 g/dL (3.5-5.0); ALT/SGPT 22 U/L (9-52); AST/SGOT 26 U/L (14-36); BLOOD UREA NITROGEN 10 mg/dL (7-17); CALCIUM 8.5 mg/dl (8.6-10.4); GFR NON-AFRICAN AMERICAN > 60
[2018-10-17 15:16] LABS: BARBITURATES, UR NEGATIVE (NEGATIVE); BENZODIAZEPINES, UR NEGATIVE (NEGATIVE); OPIATES, UR NEGATIVE (NEGATIVE); PHENCYCLIDINE, UR NEGATIVE (NEGATIVE)
[2018-10-17] MEDS: (Novolog) Insulin Aspart, Recombinant 100 u/ml 10 ml vial SC SCH (16:50)
--- NOTE | 2018-10-17 17:52 | RAD ---
Date of service: 10/16/2018 HISTORY: dka COMPARISON: No prior. TECHNIQUE: 1 view obtained. FINDINGS: LUNGS: No active pulmonary disease. PLEURA: No significant pleural effusion identified, no pneumothorax apparent. CARDIOVASCULAR: No aortic atherosclerotic calcification present. Normal cardiac size. No pulmonary vascular congestion. OSSEOUS STRUCTURES: No significant abnormalities. VISUALIZED UPPER ABDOMEN: Normal. OTHER FINDINGS: None. IMPRESSION: No active disease.
[2018-10-17 19:13] LABS: ALB/GLOB RATIO 1.3 (1.0-2.1); ALBUMIN 3.1 g/dL (3.5-5.0); ALT/SGPT 16 U/L (9-52); AST/SGOT 21 U/L (14-36); BLOOD UREA NITROGEN 7 mg/dL (7-17); CALCIUM 8.2 mg/dl (8.6-10.4); GFR NON-AFRICAN AMERICAN > 60
[2018-10-17] MEDS ORDERED: (Lantus) Insulin Glargine, Recombinant SC SCH (22:00)
--- NOTE | 2018-10-17 22:51 | HP ---
CHIEF COMPLAINT: Generalized fatigue, weakness, anterior wall chest pain, progressively getting worse, increased frequency of urination, feeling weak, lethargic over the past one week. HISTORY OF PRESENT ILLNESS: Ms. Barriga is a 37-year-old female with past medical history of insulin-dependent diabetes mellitus, hypertension, hypothyroidism, hydrocephalus with stent placement, underwent revision 3 times so far, underwent weight loss surgery with lap banding in 2015, had an episode of DKA many years ago in 2008, had been in her usual state of health until a week ago when she started feeling very weak, tired, progressively getting worse, lethargic. Yesterday, she was not feeling well at her friend's house, urinating more frequently than usual, was complaining of shortness of breath, denies any headache or dizziness, complaining of on and off scratchy throat and she has been having some itching in the ears, suffers from sinusitis from time to time, denies any cold, cough, denies any nausea, vomiting, abdominal pain, diarrhea or constipation. Denies any neurologic symptoms. PAST MEDICAL HISTORY: As described, hydrocephalus, underwent revision of the shunt 3 times, diabetes mellitus, hypertension, hypothyroidism, diabetic neuropathy. PAST SURGICAL HISTORY: Lap band surgery, hydrocephalus surgery, cataract surgery in 2007. FAMILY HISTORY: Diabetes mellitus in father and grandparents, hypertension in her father and aunt side and coronary artery disease in mother. PERSONAL HISTORY: She is single, living alone, unemployed, not having any children. SOCIAL HISTORY: Denies smoking, drinks alcohol socially. Denies any other drug abuse. ALLERGIES: NO KNOWN DRUG ALLERGIES. MEDICATIONS: Her home medications include Synthroid 25 mcg daily, Lantus 25 units at night and aspartate insulin 6 units in the morning, 12 units at lunch, 12 units with dinner, metformin 1000 mg p.o. b.i.d., enalapril 20 mg daily, Neurontin 600 mg t.i.d., and she takes the medication for her anxiety which she cannot recall. REVIEW OF SYSTEMS: As described in history of present illness. All other systems reviewed and were found to be negative. PHYSICAL EXAMINATION GENERAL: Young female, lying in bed, in no acute distress. VITAL SIGNS: Blood pressure 118/62, pulse 118, respirations 20, temperature 98.4 degree Fahrenheit, O2 sat 100% on room air. HEENT: Pupils equal, round, reacting to light and accommodation. Extraocular muscles intact. No icterus, no pallor. no oral thrush, no pharyngeal congestion. NECK: Supple. No JVD. LUNGS: Bilateral vesicular breath sounds. No wheezing. No rhonchi. CARDIOVASCULAR SYSTEM: S1 and S2 present, regular, tachycardic. ABDOMEN: Soft. Nontender. Bowel sounds present. No guarding, no rigidity, no rebound tenderness noted. CENTRAL NERVOUS SYSTEM: Alert, awake, and oriented x3. No focal deficits noted. EXTREMITIES: No edema. Palpable peripheral pulses. LABORATORY DATA: Labs done from ED, WBC 19.5, hemoglobin 12.7, hematocrit 39.2, platelets 309. PT 11.5, INR 1.1, PTT 31. Sodium 146, potassium 5.9, chloride 117, bicarb less than 5, BUN 20, creatinine 0.9, glucose 322. Hemoglobin A1c 9.3, calcium 8.6, phosphorus 8.2, magnesium 2.5, AST 39, ALT 21, alkaline phosphatase 121, troponin less than 0.012. Total protein 7.1, albumin 4.4. Lipase 28. TSH 0.12, T3 of 0.816. Arterial potassium 6.8, venous pH 5.4, urine specific gravity 1.012, pH 5, glucose 3+, ketones 2+, blood 1+, beta hydroxybutyrate 9.65, beta HCG negative. Chest x-ray negative for any infiltrates. EKG: No acute ST-T changes noted. ASSESSMENT AND PLAN: Young female with history of hypertension, diabetes mellitus, hypothyroidism, hydrocephalus, admitted for progressive worsening of lethargy, tired, weakness, increased frequency of urination, increased thirst. In emergency department, the patient was found to be having high anion gap metabolic acidosis with severe diabetic ketoacidosis and leukocytosis and the patient is being admitted to intensive care unit for further management. Severe diabetic ketoacidosis with severe high anion gap metabolic acidosis, elevated WBC count, rule out infectious etiology versus secondary distress, hyperkalemia. PLAN: The patient is being admitted to ICU, continue with insulin drip, glucose monitoring with every hour, continue with hydration, repeat electrolytes, and venous pH every 2 hours. Endocrinology consult appreciated. We will check urine for drug screen. We will restart her home medications, diabetic diet. We will consider Renal consult if persistent acidosis. We will continue with GI prophylaxis and DVT prophylaxis. We will monitor WBC count. We will hold antibiotics for now as the patient is afebrile and no other signs of infection. We will do blood cultures, urine culture. We will add further recommendation as her clinical course progresses. Carlos Marroquin MD
[2018-10-18] MEDS: Albuterol-Ipratrop 3 mg / 0.5 (3 ml) UD INH SCH ×4 (01:16→19:44)
[2018-10-18] MEDS ORDERED: (Novolog) Insulin Aspart, Recombinant 100 u/ml 10 ml vial SC STA (04:30)
[2018-10-18] MEDS ORDERED: Sodium Chloride 0.45% 1,000 ML IV SCH (04:45)
[2018-10-18 06:34] LABS: ALB/GLOB RATIO 1.2 (1.0-2.1); ALT/SGPT 18 U/L (9-52); AST/SGOT 23 U/L (14-36); BLOOD UREA NITROGEN 3 mg/dL (7-17); CALCIUM 8.5 mg/dl (8.6-10.4); GFR NON-AFRICAN AMERICAN > 60; HDL CHOLESTEROL 69 mg/dL (30-70)
[2018-10-18 06:43] LABS: LDL CHOLESTEROL 83 mg/dL (0-129)
[2018-10-18] MEDS ORDERED: Potassium Phosphate 15 MMOLE in Sodium Chloride 0.9% 250 ML IVPB ONE (06:49)
[2018-10-18 06:54] LABS: BASO % 0.6 % (0.0-2.0); EOS % 0.3 % (0.0-4.0); HEMOGLOBIN 11.5 g/dL (11.0-16.0); LYMPH # 1.5 K/uL (1.0-4.3); LYMPH % 20.4 % (20.0-40.0); MEAN CELL VOLUME 85.3 fL (81.0-99.0); MEAN CORPUSCULAR HGB CONC 35.2 g/dL (33.0-37.0); MEAN PLATELET VOLUME 8.6 fL (7.2-11.7); MONO # 0.3 K/uL (0.0-0.8); MONO % 4.1 % (0.0-10.0); NEUT # 5.6 K/uL (1.8-7.0); NEUT % 74.6 % (50.0-75.0); NRBC % 0.1 % (0.0-2.0); RBC 3.83 Mil/uL (3.80-5.20); RED CELL DISTRIBUTION WIDTH 14.7 % (11.5-14.5); WHITE BLOOD COUNT 7.5 K/uL (4.8-10.8)
[2018-10-18] MEDS: (Novolog) Insulin Aspart, Recombinant 100 u/ml 10 ml vial SC SCH ×3 (07:32→17:58)
[2018-10-18] MEDS: Potassium Chloride 20 mEq ER Tab PO SCH ×3 (09:05→21:25)
[2018-10-18] MEDS: Magnesium Sulfate 1 gm in D5W 1 GM/100 ML BAG IVPB SCH ×2 (09:05→10:10)
--- NOTE | 2018-10-18 09:16 | PN ---
DATE: 10/18/2018 LOCATION: ICU, room 7. SUBJECTIVE: This is a 37-year-old female with recent uncontrolled type 1 insulin-dependent diabetes, presenting here with marked hyperglycemic accelerations, dehydration and was evaluated to be in diabetic ketoacidosis and receiving intensive insulin therapy with ongoing vigorous IV hydration as given. Her glycemic levels are fluctuating and have improved overnight as noted. Her chemistries today showed a BUN of 3, sodium 137, potassium 3.5, chloride 113, CO2 is 16, glucose is 248, and creatinine is 0.5. Her thyroid study showed a TSH of 0.65 with a free T4 of 1.2. ASSESSMENT: This is a 37-year-old female with uncontrolled and decompensated type 1 insulin-dependent diabetes, presenting here with diabetic ketoacidosis and dehydration with resolving ketosis and is now improving clinically and metabolically as noted thereof. PLAN AND MANAGEMENT: Concur with the present vigorous IV hydration as given. lost fluid and electrolytes from the increased osmotic diuresis thereof. Also concur with the switch over to a more physiologic basal and bolus insulin drug combination as given and ordered. We will titrate incrementally as indicated to optimize metabolic control. We will obtain serial chemistries and supplement accordingly as needed. She received potassium phosphate supplementation today as noted. We will follow up with you. She is currently on Lantus given as 25 units at bedtime and NovoLog given as 6, 12, 12 units t.i.d. as ordered. Sherrell Amezquita MD
--- NOTE | 2018-10-18 10:01 | CP.PCM.PN ---
Subjective - Date & Time of Evaluation Date of Evaluation: 10/18/18 Time of Evaluation: 10:00 - Subjective Subjective: no acute events overnight Objective - Vital Signs/Intake and Output Vital Signs (last 24 hours): Temp Pulse Resp BP Pulse Ox 98.4 F 98 H 23 142/71 100 10/18/18 06:00 10/18/18 09:00 10/18/18 09:00 10/18/18 08:31 10/18/18 09:00 Intake and Output: 10/18/18 10/18/18 06:59 18:59 Intake Total 2900 150 Output Total 1900 0 Balance 1000 150 - Medications Medications: Current Medications Albuterol/Ipratropium (Duoneb 3 Mg/0.5 Mg (3 Ml) Ud) 3 ml INH RQ6 [facility] Last Admin: 10/18/18 07:51 Dose: 3 ml Aspirin (Aspirin Chewable) 81 mg PO DAILY [facility] Last Admin: 10/18/18 09:05 Dose: 81 mg Dextrose (Dextrose 50% Inj) 25 ml IV Q1H PRN PRN Reason: Other Gabapentin (Neurontin) 600 mg PO TID [facility] Last Admin: 10/18/18 09:31 Dose: 600 mg Heparin Sodium (Porcine) (Heparin) 5,000 units SC Q8 [facility] Last Admin: 10/18/18 06:11 Dose: 5,000 units Potassium Phosphate 15 mmole/ (Sodium Chloride) 255 mls @ 42.5 mls/hr IVPB ONCE ONE Stop: 10/18/18 12:48 Last Admin: 10/18/18 07:28 Dose: 42.5 mls/hr Magnesium Sulfate/Dextrose (Magnesium Sulfate 1 Gm/100 Ml D5w) 1 gm in 100 mls @ 100 mls/hr IVPB Q1H [facility] Stop: 10/18/18 10:44 Last Admin: 10/18/18 09:05 Dose: 100 mls/hr Insulin Aspart (Novolog) 6 unit SC ACB [facility] Last Admin: 10/18/18 07:32 Dose: 6 units Insulin Aspart (Novolog) 12 unit SC ACL [facility] Insulin Aspart (Novolog) 12 unit SC ACD [facility] Last Admin: 10/17/18 16:50 Dose: 12 u Insulin Glargine (Lantus) 25 unit SC HS [facility] Last Admin: 10/17/18 21:35 Dose: 25 unit Levothyroxine Sodium (Synthroid) 75 mcg PO DAILY@0630 [facility] Lisinopril (Zestril) 10 mg PO DAILY [facility] Last Admin: 10/18/18 09:31 Dose: 10 mg Pantoprazole Sodium (Protonix Inj) 40 mg IVP Q12H [facility] Last Admin: 10/18/18 09:05 Dose: 40 mg Potassium Chloride (K-Dur 20 Meq Er Tab) 40 meq PO Q6H [facility] Stop: 10/19/18 02:46 Last Admin: 10/18/18 09:05 Dose: 40 meq Rosuvastatin Calcium (Crestor) 10 mg PO HS [facility] Last Admin: 10/17/18 21:34 Dose: 10 mg - Labs Labs: 10/18/18 06:12 10/18/18 06:09 PT 11.5 SECONDS (9.7-12.2) 10/16/18 19:37 INR 1.1 10/16/18 19:37 APTT 31.0 SECONDS (21-34) 10/16/18 19:37 - Head Exam Head Exam: ATRAUMATIC, NORMAL INSPECTION, NORMOCEPHALIC - Eye Exam Pupil Exam: PERRL - ENT Exam ENT Exam: Mucous Membranes Moist - Respiratory Exam Respiratory Exam: Clear to Ausculation Bilateral, NORMAL BREATHING PATTERN. absent: Wheezes, Respiratory Distress, Stridor - Cardiovascular Exam Cardiovascular Exam: REGULAR RHYTHM, +S1, +S2 - GI/Abdominal Exam GI & Abdominal Exam: Soft, Normal Bowel Sounds. absent: Tenderness - Extremities Exam Extremities Exam: Normal Inspection Assessment and Plan - Assessment and Plan (Free Text) Assessment: DKA: resolved, start home sub q insulin -BGm achs check HBA1c pending -restart home medications -continue dvt/pud ppx -central line removed, pressure placed for 10 minutes, no bleeding post removal Patient remains hemodynamically stable.
[2018-10-18] MEDS ORDERED: (Novolog) Insulin Aspart, Recombinant 100 u/ml 10 ml vial SC SCH (11:30)
--- NOTE | 2018-10-18 13:26 | CP.PCM.PN ---
Subjective - Date & Time of Evaluation Date of Evaluation: 10/18/18 Time of Evaluation: 13:26 - Subjective Subjective: Progress note dictated #[id number] Objective - Vital Signs/Intake and Output Vital Signs (last 24 hours): Temp Pulse Resp BP Pulse Ox 97.7 F 87 19 143/72 100 10/18/18 08:00 10/18/18 13:00 10/18/18 13:00 10/18/18 09:33 10/18/18 13:00 Intake and Output: 10/18/18 10/18/18 06:59 18:59 Intake Total 2900 1505.0 Output Total 1900 0 Balance 1000 1505.0 - Medications Medications: Current Medications Albuterol/Ipratropium (Duoneb 3 Mg/0.5 Mg (3 Ml) Ud) 3 ml INH RQ6 [facility] Last Admin: 10/18/18 07:51 Dose: 3 ml Aspirin (Aspirin Chewable) 81 mg PO DAILY [facility] Last Admin: 10/18/18 09:05 Dose: 81 mg Dextrose (Dextrose 50% Inj) 25 ml IV Q1H PRN PRN Reason: Other Gabapentin (Neurontin) 600 mg PO TID [facility] Last Admin: 10/18/18 13:22 Dose: 600 mg Heparin Sodium (Porcine) (Heparin) 5,000 units SC Q8 [facility] Last Admin: 10/18/18 13:22 Dose: 5,000 units Insulin Aspart (Novolog) 6 unit SC ACB [facility] Last Admin: 10/18/18 07:32 Dose: 6 units Insulin Aspart (Novolog) 12 unit SC ACL [facility] Last Admin: 10/18/18 11:32 Dose: 12 units Insulin Aspart (Novolog) 12 unit SC ACD [facility] Last Admin: 10/17/18 16:50 Dose: 12 u Insulin Glargine (Lantus) 25 unit SC HS [facility] Last Admin: 10/17/18 21:35 Dose: 25 unit Levothyroxine Sodium (Synthroid) 75 mcg PO DAILY@0630 [facility] Lisinopril (Zestril) 10 mg PO DAILY [facility] Last Admin: 10/18/18 09:31 Dose: 10 mg Pantoprazole Sodium (Protonix Inj) 40 mg IVP Q12H [facility] Last Admin: 10/18/18 09:05 Dose: 40 mg Potassium Chloride (K-Dur 20 Meq Er Tab) 40 meq PO Q6H [facility] Stop: 10/19/18 02:46 Last Admin: 10/18/18 09:05 Dose: 40 meq Rosuvastatin Calcium (Crestor) 10 mg PO HS [facility] Last Admin: 10/17/18 21:34 Dose: 10 mg - Labs Labs: 10/18/18 06:12 10/18/18 06:09 PT 11.5 SECONDS (9.7-12.2) 10/16/18 19:37 INR 1.1 10/16/18 19:37 APTT 31.0 SECONDS (21-34) 10/16/18 19:37
[2018-10-18] MEDS ORDERED: Aluminum Hydroxide/Magnesium Hydroxide Susp (30 mL) PO PRN (14:18)
[2018-10-18 14:26] LABS: BLOOD UREA NITROGEN 2 mg/dL (7-17); CALCIUM 8.6 mg/dl (8.6-10.4); GFR NON-AFRICAN AMERICAN > 60
[2018-10-18] MEDS ORDERED: Potassium Phosphate 15 MMOLE in Sodium Chloride 0.9% 250 ML IV ONE (16:00)
--- NOTE | 2018-10-18 19:56 | PN ---
DATE: 10/18/2018 SUBJECTIVE: The patient is seen and examined at bedside. The patient is feeling much better. Denies any headache or dizziness, but complaining of epigastric abdominal pain. Denies any other abdominal symptoms. All other systems reviewed and were found to be negative. PHYSICAL EXAMINATION: GENERAL: Young female, sitting in a chair, in no acute distress. VITAL SIGNS: Blood pressure 108/64, pulse 87, respirations 20, temperature 97.8 degrees Fahrenheit, O2 sat is 100% on room air. HEENT: Pupils equal, round, reacting to light and accommodation. Extraocular muscles intact. No icterus. No pallor. No oral thrush. No pharyngeal congestion. NECK: Supple. No JVD. LUNGS: Bilateral vesicular breath sounds. No wheezing. No rhonchi. CARDIOVASCULAR SYSTEM: S1 and S2 present, regular. ABDOMEN: Soft. Nontender. Bowel sounds present. No guarding, no rigidity, no rebound tenderness noted. CENTRAL NERVOUS SYSTEM: Alert, awake, and oriented x3. No focal deficits noted. EXTREMITIES: No edema. Palpable peripheral pulses. MEDICATIONS: Include DuoNeb; aspirin 81 mg daily; dextrose as needed; Neurontin 600 mg p.o. t.i.d.; subcu heparin for DVT prophylaxis; aspart NovoLog 12 units subcu before meals dinner, 6 units before meals breakfast and 5 units before meals lunch; Lantus 25 units subcu at bedtime; Synthroid mcg daily, Zestril 10 mg daily, Protonix 40 mg IV every 12 hours, K-Dur 20 mEq, Crestor 10 mg p.o. at bedtime. LABORATORY DATA: Labs done from this morning: WBC 7.5, hemoglobin 11.5, hematocrit 32.7, platelets 134. Sodium 137, potassium 3.5, chloride 113, bicarb 15, BUN 3, creatinine 0.5, glucose 248, hemoglobin A1c is 10.5, calcium 8.5, phosphorous 1, magnesium 1.6. Total bilirubin 0.4, AST 23, ALT 18, alkaline phosphatase 81, total protein 5.3, albumin 3. Triglycerides 84, cholesterol 166, LDL 83, HDL 69, TSH is 0.65. Blood cultures negative so far. Urine culture contaminated. ASSESSMENT AND PLAN: A young female with history of insulin-dependent diabetes mellitus, hypertension, hypothyroidism, diabetic neuropathy, hydrocephalus. Admitted for diabetic ketoacidosis with severe high anion gap metabolic acidosis, improving diabetic ketoacidosis, hypophosphatemia. Continue with her insulin regimen as per Dr. insulin drip. Continue with her home medications. Supplement potassium, phosphorous and magnesium. We will repeat labs in the morning. We will discontinue subcutaneous heparin as the patient's platelets decreased. Carlos Marroquin MD
[2018-10-18] MEDS ORDERED: (Lantus) Insulin Glargine, Recombinant SC SCH (22:00)
[2018-10-19] MEDS: Potassium Chloride 20 mEq ER Tab PO SCH (02:08)
[2018-10-19] MEDS: Albuterol-Ipratrop 3 mg / 0.5 (3 ml) UD INH SCH (02:55)
[2018-10-19 06:01] LABS: EOS % 0.1 % (0.0-4.0); LYMPH # 2.2 K/uL (1.0-4.3); LYMPH % 48.9 % (20.0-40.0); MEAN CELL VOLUME 84.5 fL (81.0-99.0); MEAN CORPUSCULAR HEMOGLOBIN 29.2 pg (27.0-31.0); MEAN CORPUSCULAR HGB CONC 34.6 g/dL (33.0-37.0); MEAN PLATELET VOLUME 8.8 fL (7.2-11.7); MONO # 0.4 K/uL (0.0-0.8); MONO % 9.1 % (0.0-10.0); NEUT # 1.8 K/uL (1.8-7.0); NEUT % 40.9 % (50.0-75.0); NRBC % 0.2 % (0.0-2.0); RBC 4.1 Mil/uL (3.80-5.20); WHITE BLOOD COUNT 4.4 K/uL (4.8-10.8)
[2018-10-19] MEDS ORDERED: Levothyroxine 75 MCG TAB PO SCH (06:30)
[2018-10-19 06:32] LABS: ALB/GLOB RATIO 1.3 (1.0-2.1); ALBUMIN 3.3 g/dL (3.5-5.0); ALT/SGPT 15 U/L (9-52); AST/SGOT 37 U/L (14-36); BLOOD UREA NITROGEN < 2 mg/dL (7-17); CALCIUM 8.4 mg/dl (8.6-10.4); GFR NON-AFRICAN AMERICAN > 60
[2018-10-19 07:01] VITALS: RESP 20
[2018-10-19] MEDS: (Novolog) Insulin Aspart, Recombinant 100 u/ml 10 ml vial SC SCH ×3 (07:44→17:05)
[2018-10-19] MEDS ORDERED: (Novolog) Insulin Aspart, Recombinant 100 u/ml 10 ml vial SC SCH (11:30)
--- NOTE | 2018-10-19 12:25 | CP.PCM.PN ---
Subjective - Date & Time of Evaluation Date of Evaluation: 10/19/18 Time of Evaluation: 12:25 - Subjective Subjective: Discharge summary dictated #[id number] Objective - Vital Signs/Intake and Output Vital Signs (last 24 hours): Temp Pulse Resp BP Pulse Ox 99.0 F 76 20 144/84 99 10/19/18 08:19 10/19/18 08:19 10/19/18 08:19 10/19/18 08:19 10/19/18 08:19 Intake and Output: 10/19/18 10/19/18 06:59 18:59 Output Total 800 Balance -800 - Medications Medications: Current Medications Al Hydrox/Mg Hydrox/Simethicone (Maalox 30 Ml) 30 ml PO Q8H PRN PRN Reason: Indigestion / Heartburn Albuterol/Ipratropium (Duoneb 3 Mg/0.5 Mg (3 Ml) Ud) 3 ml INH RQ6 [facility] Last Admin: 10/19/18 02:55 Dose: Not Given Aspirin (Aspirin Chewable) 81 mg PO DAILY [facility] Last Admin: 10/19/18 09:47 Dose: 81 mg Dextrose (Dextrose 50% Inj) 25 ml IV Q1H PRN PRN Reason: Other Gabapentin (Neurontin) 600 mg PO TID [facility] Last Admin: 10/19/18 09:47 Dose: 600 mg Insulin Aspart (Novolog) 6 unit SC ACB [facility] Last Admin: 10/19/18 08:32 Dose: 6 units Insulin Aspart (Novolog) 6 unit SC ACL [facility] Insulin Aspart (Novolog) 6 unit SC ACD [facility] Last Admin: 10/18/18 17:31 Dose: 6 units Insulin Glargine (Lantus) 20 unit SC HS [facility] Last Admin: 10/18/18 21:25 Dose: 20 u Levothyroxine Sodium (Synthroid) 75 mcg PO DAILY@0630 [facility] Last Admin: 10/19/18 06:17 Dose: 75 mcg Lisinopril (Zestril) 10 mg PO DAILY [facility] Last Admin: 10/19/18 09:47 Dose: 10 mg Pantoprazole Sodium (Protonix Inj) 40 mg IVP Q12H [facility] Last Admin: 10/19/18 09:47 Dose: 40 mg Potassium Phos/Sodium Phos (Neutra-Phos) 1 pkt PO QID [facility] Stop: 10/21/18 14:01 Rosuvastatin Calcium (Crestor) 10 mg PO HS [facility] Last Admin: 10/18/18 21:25 Dose: 10 mg - Labs Labs: 10/19/18 05:47 10/19/18 05:47 PT 11.5 SECONDS (9.7-12.2) 10/16/18 19:37 INR 1.1 10/16/18 19:37 APTT 31.0 SECONDS (21-34) 10/16/18 19:37
[2018-10-19] MEDS: Potassium & Sodium Phosphate PO SCH ×2 (13:31→17:04)
[2018-10-19 16:25] VITALS: BP 136/82; PULSE 73; TEMP 98.1; O2SAT 100
--- NOTE | 2018-10-19 22:08 | PN ---
DATE: 10/19/2018 ENDOCRINOLOGY FOLLOWUP NOTE. LOCATION: In room 369. SUBJECTIVE: This is a 37-year-old female with recent uncontrolled type 1 insulin-dependent diabetes, presenting here with diabetic ketoacidosis and dehydration and has now improved clinically and metabolically as noted thereof. In fact, her oral intake has been extremely variable with some optimal meal portions and developed supervening hypoglycemic episodes today as noted. LABORATORY DATA: Her glucose values have ranged from 49 to 64 and 97 and 111 mg/dL. Her chemistry showed a BUN of less than 2, sodium 140, potassium 4.7, chloride 110, CO2 of 22, glucose 93, and creatinine 0.5. ASSESSMENT: This is a 37-year-old female with uncontrolled and decompensated type 1 insulin-dependent diabetes with diabetic ketoacidosis and dehydration and has since then improved clinically and metabolically as noted thereof. PLAN OF MANAGEMENT: We will modify once again her basal and bolus insulin regimen to conform with the viability of her oral intake and suboptimal meal portions as noted. We will lower the NovoLog to 4 units before breakfast, 4 units before lunch, and 6 units before dinner as ordered. We will also continue the basal insulin given as Lantus of 20 units subcutaneously at bedtime daily as given. We will titrate incrementally as indicated to optimize metabolic control. We will continue the same insulin dose regimen even upon discharge today and has been advised to resume her home glucose monitoring and call her medical doctors for insulin dose adjustments to conform with the variability of her oral intake thereof. We will continue her Lantus given as 20 units subcu at bedtime daily and NovoLog down to 4 units at breakfast, 6 units at lunch, and 6 units at dinner time as mentioned. We will follow. Sherrell Amezquita MD
--- NOTE | 2018-10-20 05:33 | DS ---
DISCHARGE DIAGNOSES: Diabetic ketoacidosis, hypertension, hypothyroidism, diabetic neuropathy, hydrocephalus. HISTORY OF PRESENT ILLNESS: Ms. Barriga is a 37-year-old female with past medical history of insulin-dependent diabetes mellitus, hypertension, hypothyroidism, hydrocephalus, status post [employer]NA[employer] shunt placement, underwent revision three times and underwent weight loss surgery in 2016, had an episode of DKA many years ago. Admitted to the hospital for generalized fatigue and weakness. In the ED, the patient was found to be in DKA, and the patient is being admitted for further management. Today, the patient is feeling better. Denies any headache, dizziness. Denies any chest pain, shortness of breath, or wheezing. Denies any nausea, vomiting, abdominal pain, diarrhea, or constipation. Denies any urinary complaints. Denies any leg pains or leg cramps. Denies any other neurologic symptoms. All other systems reviewed and were found to be negative. PHYSICAL EXAMINATION: GENERAL: Young female, lying in bed, in no acute distress. VITAL SIGNS: Blood pressure 136/82, pulse 73, respirations 20, temperature 98.1 degrees Fahrenheit, O2 sats 100% on room air. HEENT: Pupils equal, round, reacting to light and accommodation. Extraocular muscles intact. No icterus. No pallor. No oral thrush. No pharyngeal congestion. NECK: Supple. No JVD. LUNGS: Bilateral vesicular breath sounds. No wheezing. No rhonchi. CARDIOVASCULAR SYSTEM: S1 and S2 present, regular. ABDOMEN: Soft and nontender. Bowel sounds present. No guarding. No rigidity. No rebound tenderness noted. CENTRAL NERVOUS SYSTEM: Alert, awake and oriented x3. No focal deficits noted. EXTREMITIES: No edema. Palpable peripheral pulses. LABORATORY DATA: Labs from today, WBC 4.4, hemoglobin 12, hematocrit 34.6, platelets 176. Sodium 140, potassium 4.7, chloride 110, bicarb 22, BUN 2, creatinine 0.5, glucose 97, calcium 8.4, phosphorus 2, magnesium 1.7, AST 37, ALT 18, alkaline phosphatase 83, total protein 6, albumin 3.3. HIV negative. Thyroid peroxidase antibody less than 1. Beta-hydroxybutyrate 9.6. Drug screen negative. UA specific gravity 1.012, pH 5, glucose 3+, ketones 2+, otherwise negative. Chest x-ray negative for any infiltrates. HOSPITAL COURSE: The patient was admitted to ICU for severe DKA with severe metabolic high anion gap acidosis. The patient was started on IV hydration, insulin drip, and given multiple doses of bicarbonate. The patient was evaluated by Endocrinology. The patient's diabetic ketoacidosis improved and her electrolytes back to her baseline. Phosphorus was found to be low, which she got the replacement via IV, and the patient's sugars are much improved. Her insulin dose adjusted. The patient is cleared by Endocrinology and her insulin dose is adjusted as the patient is otherwise hemodynamically stable and cleared by Endocrinology. The patient is being discharged. Advised the patient to follow up with her primary care physician and Endocrinology as outpatient. Advised to continue with her home medication of enalapril, Neurontin, and Synthroid. Her insulin changed to NovoLog 4 units subcutaneous before breakfast and 4 units with lunch, and 6 units with dinner, and Lantus insulin 20 units subcutaneous at bedtime, and advised the patient to return to the ED or call me or follow up with her primary care physician if any worsening or new symptoms occur. CONDITION UPON DISCHARGE: The patient is alert, awake, oriented x3 and hemodynamically stable at the time of discharge. DISCHARGE DIET: Heart-healthy, low-sodium, 1800-calorie ADA diet. ACTIVITY: As tolerated. Carlos Marroquin MD
[2018-10-20] MEDS ORDERED: (Novolog) Insulin Aspart, Recombinant 100 u/ml 10 ml vial SC SCH ×2 (07:30→11:30)
--- NOTE | 2018-10-20 19:44 | CARD ---
APPROVED REPORT Date of service: 10/16/2018 EKG Measurement Heart [id number] <Conclusion> Sinus tachycardia Otherwise normal ECG
== END 2018-10-19 17:31 | disposition home or self-care (01) | DRG 294 ==
LOC: C.ER 18:57 → C.9I 22:03 → C.3T 10-19 06:14
PROVIDERS: ADMIT Internal Medicine; ATTEND Internal Medicine
DX: E10.10 Type 1 diabetes mellitus with ketoacidosis without coma (principal); E86.0 Dehydration; E87.5 Hyperkalemia; G91.9 Hydrocephalus, unspecified; E03.9 Hypothyroidism, unspecified; E78.5 Hyperlipidemia, unspecified; I10 Essential (primary) hypertension; J45.909 Unspecified asthma, uncomplicated; Z98.84 Bariatric surgery status